=== PATIENT | female | born 1975 | race Two or more races ===

== ENCOUNTER 2024-10-17 00:45 | Inpatient (IN) | payer SELFPAY ==
[~2024-10-17] VITALS: Ht 162.6 cm; Wt 70.1 kg
[2024-10-17] VITALS (9 sets, daily range): BP systolic 136–157; BP diastolic 65–90; PULSE 69–87; RESP 15–19; TEMP 97.6–98.3; O2SAT 96–100
--- NOTE | 2024-10-17 01:02 | ED.PDOC ---
HPI (NEURO) HPI Comments 49-year-old female came to ER via EMS for seizures. Patient has no history of seizures. Patient was asleep when she had a witnessed seizure by her , described as tonic-clonic, lasting approximately 30 seconds. Noted oral trauma. Upon arrival paramedics patient is still postictal. Blood sugar on scene was 117. Chief Complaint: Seizure Time Seen by MD: 01:01 Reviewed Notes: Nurses Notes Information Source: Patient, Emergency Med Personnel Mode of Arrival: EMS Severity: Moderate Dizziness/Weakness Severity: Unable to do activities Headache Severity: Moderate Timing: Minutes Duration: Since onset Seizure Quality: Tonic-clonic Headache Quality: Throbbing, Aching Headache Location: Generalized Weakness Location: Generalized Numbness Location: Generalized Seizure Location: Generalized Onset: At rest Circumstances: Spontaneous Past Medical History PAST MEDICAL HISTORY: HTN Surgical History: Denies all surgeries PLATE MOLDER History: Denies all PLATE MOLDER Hx Family History Family History: Reviewed,noncontributory to illness Social History Smoker: Non-Smoker Alcohol: Denies ETOH Use Drugs: Denies Drug Use Lives In: Home Constitutional: denies: chills, diaphoresis, fatigue, fever, malaise, sweats, weakness, others EENTM: denies: blurred vision, double vision, ear bleeding, ear discharge, ear drainage, ear pain, ear ringing, eye pain, eye redness, hearing loss, mouth pain, mouth swelling, nasal discharge, nose bleeding, nose congestion, nose pain, photophobia, tearing, throat pain, throat swelling, voice changes, others Respiratory: denies: cough, hemoptysis, orthopnea, SOB at rest, shortness of breath, SOB with excertion, stridor, wheezing, others Cardiovascular: denies: chest pain, dizzy spells, diaphoresis, Dyspnea on exertion, edema, irregular heart beat, left arm pain, lightheadedness, palpitations, PND, syncope, others Gastrointestinal: denies: abdomen distended, abdominal pain, blood streaked bowels, constipated, diarrhea, dysphagia, difficulty swallowing, hematemesis, melena, nausea, poor appetite, poor fluid intake, rectal bleeding, rectal pain, vomiting, others Genitourinary: denies: abnormal vagina bleeding, burning, dyspareunia, dysuria, flank pain, frequency, hematuria, incontinence, pain, , vagina discharge, urgency, others Neurological: reports: headache, seizure, weakness; denies: dizziness, fainting, left sided numbness, left sided weakness, numbness, paresthesia, pre- existing deficit, right sided numbness, right sided weakness, speech problems, tingling, tremors, others Musculoskeletal: denies: back pain, gout, joint pain, joint swelling, muscle pain, muscle stiffness, neck pain, others Integumetry: denies: bruises, change in color, change in hair/nails, dryness, laceration, lesions, lumps, rash, wounds, others Allergic/Immunocompromised: denies: Difficulty Healing, Frequent Infections, Hives, Itching, others Hematologic/Lymphatic: denies: anemia, blood clots, easy bleeding, easy bruising, swollen glands, others Endocrine: denies: excessive hunger, excessive sweating, excessive thirst, excessive urination, flushing, intolerance to cold, intolerance to heat, unexplained weight gain, unexplained weight loss, others Psychiatric: denies: anxiety, bipolar disorder, depression, hopeless, panic disorder, schizophrenia, sleepless, suicidal, others Physical Exam General Appearance: No Apparent Distress, Normal HEENT: Normal ENT Inspection, Pharynx Normal, TMs Normal Neck: Full Range of Motion, Non-Tender, Normal, Normal Inspection Respiratory: Chest Non-Tender, Lungs Clear, No Accessory Muscle Use, No Respiratory Distress, Normal Breath Sounds Cardiovascular: No Edema, No JVD, No Murmur, No Gallop, Normal Peripheral Pulses, Regular Rate/Rhythm Breast Exam: Deferred Gastrointestinal: No Organomegaly, Non Tender, No Pulsatile Mass, Normal Bowel Sounds, Soft Genitalia: Deferred Pelvic: Deferred Rectal: Deferred Extremities: No calf tenderness, Normal capillary refill, Normal inspection, Normal range of motion, Non-tender, No pedal edema Musculoskeletal : Apperance: Normal Neurologic: Alert, microelectronics assembler II-XII nml as Tested, No Motor Deficits, Normal Affect, Normal Mood, No Sensory Deficits Cerebellar Function: Normal Reflexes: Normal Skin: Dry, Normal Color, Warm Lymphatic: No Adenopathy Was a procedure done? Was a procedure done?: No Differential Diagnosis (SZ) Seizure: Psychogenic Seizure, Hypoglycemia, Hypoxemia, Idiopathic, Syncope, Enc ephalopathy, Epilepsy-Break Through X-Ray, Labs, Meds, VS Vital Signs Date Time Temp Pulse Resp B/P (MAP) Pulse Ox O2 Delivery O2 Flow Rate FiO2 10/17/24 01:45 Room Air* 0 21 10/17/24 01:45 97.7 94 17 154/77 (102) 99 97.7 10/17/24 01:34 96 10/17/24 00:53 98.7 104 18 169/82 96 98.7 Lab Test 10/17/24 01:50 10/17/24 00:50 Range/Units Urine Color Colorless Yellow Urine Clarity Clear Clear Urine pH 8.0 5.0-9.0 Urine Specific [place] 1.011 1.001-1.035 Urine Protein Negative Negative Urine Ketones Negative Negative Urine Blood 3+ H Negative /uL Urine Nitrite Negative Negative Urine Bilirubin Negative Negative Urine Urobilinogen Normal Negative mg/dL Urine Leukocyte Esterase Negative Negative /uL Urine RBC <1 0 - 4 /hpf Urine Microscopic WBC Pending Urine Squamous Epithelial Cells Few <5 /hpf Urine Bacteria None seen None Seen /hpf Urine Glucose Normal Normal mg/dL Urine Opiates Screen Neg NEGATIVE Urine Fentanyl Screen Neg NEGATIVE Urine Barbiturates Screen Neg NEGATIVE Urine Phencyclidine Screen Neg NEGATIVE Urine Amphetamines Screen Neg NEGATIVE Urine Benzodiazepines Screen Neg NEGATIVE Urine Cocaine Screen Neg NEGATIVE Urine Cannabinoids Screen Neg NEGATIVE White Blood Count 12.4 H 4.4-10.8 10^3/uL Red Blood Count 2.29 L 4.0-5.20 10^6/uL Hemoglobin 6.2 *L 12.2-16.2 g/dL Hematocrit 18.7 L 36.0-46.0 % Mean Corpuscular Volume 81.7 80.0-100.0 fL Mean Corpuscular Hemoglobin 27.0 L 28.0-32.0 pg Mean Corpuscular Hemoglobin Concent 33.1 32.0-36.0 g/dL Red Cell Distribution Width 16.3 H 11.8-14.3 % Platelet Count 895 *H 140-450 10^3/uL Mean Platelet Volume 6.9 6.9-10.8 fL Neutrophils (%) (Auto) 65.6 37.0-80.0 % Lymphocytes (%) (Auto) 24.7 10.0-50.0 % Monocytes (%) (Auto) 7.6 0.0-12.0 % Eosinophils (%) (Auto) 1.5 0.0-7.0 % Basophils (%) (Auto) 0.6 0.0-2.0 % Neutrophils # (Auto) 8.1 1.6-8.6 10 ^3/uL Lymphocytes # (Auto) 3.1 0.4-5.4 10 ^3/uL Monocytes # (Auto) 0.9 0-1.3 10 ^3/uL Eosinophils # (Auto) 0.2 0-0.8 10 ^3/uL Basophils # (Auto) 0.1 0-0.2 10 ^3/uL Nucleated Red Blood Cells 0.1 % Prothrombin Time 9.8 9.3-11.8 sec Prothrombin Time INR 0.92 0.9-1.15 Activated Partial Thromboplast Time 20.6 L 24.5-34.5 SEC Sodium Level 141 136-145 mmol/L Potassium Level 3.2 L 3.5-5.1 mmol/L Chloride Level 105 98-107 mmol/L Carbon Dioxide Level 24 20-31 mmol/L Anion Gap 12 5-15 Blood Urea Nitrogen 8 L 9-23 mg/dL Creatinine 0.80 0.550-1.02 mg/dL Glomerular Filtration Rate Calc 89 >90 mL/min BUN/Creatinine Ratio 10.0 10.0-20.0 Serum Glucose 102 74-106 mg/dL Calcium Level 8.6 L 8.7-10.4 mg/dL Magnesium Level 1.9 1.6-2.6 mg/dL Iron Level 13 L 50-170 ug/dL Total Iron Binding Capacity 396 250-425 ug/dL Percent Iron Saturation 3.3 L 15-50 % Total Bilirubin < 0.2 L 0.2-1.0 mg/dL Aspartate Amino Transferase (AST) 14 13-40 U/L Alanine Aminotransferase (ALT) 11 7-40 U/L Alkaline Phosphatase 83 46-116 U/L Total Protein 7.0 5.7-8.2 g/dL Albumin 4.0 3.2-4.8 g/dL Plasma/Serum Blood Alcohol < 3.0 <10 mg/dL Current Medications Medications (Trade) Dose Ordered Sig/Inocencia Route Start Time Stop Time Status Last Admin Lorazepam (Ativan Inj) 1 mg ONCE ONCE IV 10/17/24 01:00 10/17/24 01:01 DC 10/17/24 02:03 Sodium Chloride 1,000 ml @ 500 mls/hr Q2H ONCE IVB 10/17/24 01:00 10/17/24 02:59 DC 10/17/24 02:03 Time of 1ST Reevaluation: 00:56 Reevaluation 1ST: Unchanged Patient Education/Counseling: Diagnosis, Treatment Family Education/Counseling: No Family Present Departure 1 Departure Time of Disposition: 05:02 Impression: Primary Impression: New onset seizure Additional Impression: Symptomatic anemia Disposition: ADMITTED INPATIENT Admit to: Med Surg Condition: Guarded Comments 49-year-old female with a history of hypertension now presents after having a seizure at home. She does have some small abrasions to the tongue and was briefly aggressive to events for about 15 minutes. The seizure was witnessed by her who witnessed the whole thing and states that she was in bed and did not have any significant trauma or fall. Head CT shows no acute pathology. Patient has severe anemia. I ordered a blood transfusion. Patient is complaining of feeling generalized weakness. Patient will need to be admitted for symptomatic anemia new onset seizure Critical Care Note Critical Care Time?: No Stability Stability form required: No Heart Score Heart Score: Heart Score Response (Comments) Value History N/A 0 EKG N/A 0 Age N/A 0 Risk Factors N/A 0 Troponin N/A 0 Total 0 I personally scribed for CYNTHIA BRAVO MD ([email or web address]) on 10/17/24 at 01:02. Electronically submitted by Siddharth Lewis ([facility]). CYNTHIA BRAVO MD Oct 17, 2024 01:02
[2024-10-17 01:09] LABS: Nucleated Red Blood Cells % 0.1 %
[2024-10-17 01:11] LABS: Hematocrit 18.7 % (36.0-46.0); Mean Corpuscular Hemoglobin 27.0 pg (28.0-32.0); Mean Corpuscular Volume 81.7 fL (80.0-100.0)
[2024-10-17 01:21] LABS: Hemoglobin 6.2 g/dL (12.2-16.2)
[2024-10-17 01:26] LABS: Alanine Aminotransferase 11 U/L (7-40); Albumin 4.0 g/dL (3.2-4.8); Alkaline Phosphatase 83 U/L (46-116); Anion Gap 12 (5-15); BUN/Creatinine Ratio 10.0 (10.0-20.0); Carbon Dioxide 24 mmol/L (20-31); Chloride 105 mmol/L (98-107); Glucose 102 mg/dL (74-106); Magnesium 1.9 mg/dL (1.6-2.6); Sodium 141 mmol/L (136-145); Total Protein 7.0 g/dL (5.7-8.2)
[2024-10-17 01:32] LABS: Bilirubin, Total < 0.2 mg/dL (0.2-1.0); Blood Urea Nitrogen 8 mg/dL (9-23); Calcium 8.6 mg/dL (8.7-10.4); Potassium 3.2 mmol/L (3.5-5.1)
[2024-10-17 02:00] LABS: Urine Protein, UAD Negative (Negative)
[2024-10-17] MEDS: LORazepam 2MG/ML-1ML VIAL IV ONE (02:03)
[2024-10-17] MEDS: SODIUM CHLORIDE 0.9% 1,000 ML IVB ONE (02:03)
[2024-10-17 02:05] LABS: Total Iron Binding Capacity 396.0 ug/dL (250-425)
[2024-10-17 02:07] LABS: Iron 13.0 ug/dL (50-170)
[2024-10-17 02:14] LABS: INR 0.92 (0.9-1.15); Partial Thromboplastin Time 20.6 SEC (24.5-34.5); Prothrombin Time 9.8 sec (9.3-11.8)
[2024-10-17 02:16] LABS: Phencyclidine Screen, Urine Neg (NEGATIVE)
[2024-10-17 02:20] LABS: Amphetamine Screen, Urine Neg (NEGATIVE); Barbiturate Scree,Urine Neg (NEGATIVE); Benzodiazephine Screen, Urine Neg (NEGATIVE); Cannabinoid Screen, Urine Neg (NEGATIVE); Cocaine Screen, Urine Neg (NEGATIVE); Opiate Scree,Urine Neg (NEGATIVE)
--- NOTE | 2024-10-17 04:21 | DVH ---
EXAM: CT HEAD WITHOUT CONTRAST INDICATION: new seizure TECHNIQUE: CT of the head without intravenous contrast. Radiation Dose : 1. Head: CT Dose: CTDI volume is 52.46 mGy. Dose-length product is 929.07 mGy*cm The dose indicators for CT are the volume Computed Tomography (CT) Dose Index (CTDIvol) and the Dose Length Product (DLP), and are measured in units of mGy and mGy-cm, respectively. These indicators are not patient dose, but values generated from the CT scanner acquisition factors. The report includes radiation exposure data for exposures received during this examination. COMPARISON: None FINDINGS: There is no evidence of acute intracranial hemorrhage, extra-axial collection, mass effect, midline s hift, herniation or hydrocephalus. The ventricles, sulci and cisterns are age appropriate. The beaulieu-white differentiation is intact. The visualized paranasal sinuses and mastoid air cells are clear. The surrounding soft tissues and osseous structures are unremarkable. IMPRESSION: 1. No acute intracranial abnormality. Radiation optimization: All CT scans at this facility use at least one of these dose optimization aissatou hniques: automated exposure control mA and/or kV adjustment per patient size (includes targeted exam s where dose is matched to clinical indication) or iterative reconstruction.
--- NOTE | 2024-10-17 05:16 | ECG ---
[facility] Test Date: 2024-10-17 Test Time: 01:34:08 Pat Name: HOSEA GALVEZ Department: Room: 0279T Gender: F Sheet Metal Journeyman: LUCIUS : 1975 Requested By: CYNTHIA BRAVO Order Number: [id number] Reading MD: Orlando Boswell Measurements Intervals [place] Rate: 96 P: 56 DC: 164 QRS: 44 QRSD: 102 T: 33 QT: 353 QTc: 447 Interpretive Statements Sinus rhythm Borderline T abnormalities, anterior leads Electronically Signed On 10-18-2024 22:58:33 PDT by Orlando Boswell Please click the below link to view image of tracing.
[2024-10-17] MEDS ORDERED: ONDANSETRON HCL 4 MG/2 ML VIAL IV PRN (12:45)
[2024-10-17] MEDS: MAGNESIUM SULFATE 1GM/100ML 100 ML IV ONE (13:17)
[2024-10-17] MEDS: SODIUM CHLORIDE 0.9% 1,000 ML IV ONE (13:17)
[2024-10-17] MEDS: HYDROcodone-ACET 7.5/325MG TAB PO ONE (13:18)
[2024-10-17] MEDS: POTASSIUM CHLORIDE 40 MEQ, LIDOCAINE 1% (LOCAL ANESTH.) 4 ML in SODIUM CHL 0.9% 250 ML IV ONE (15:58)
--- NOTE | 2024-10-17 18:10 | DVHHPRES ---
History of Present Illness Resident Creating Document: YAKOV BRUNSON RESDIENT History of Present Illness This is a 49-year-old female with past medical history of hypertension, gestational diabetes mellitus severe anemia (status post transfusion) came to the hospital due to seizure. Per patient's has been, last night at 11:00 p.m. while she wanted to sleep, she suddenly developed jerky movement of limbs, subsequently lost consciousness which last for few minutes. Upon waking up patient was confused for about 15-20 minutes. She also reports of tongue biting. But denies of urine/stool incontinence. One month back, the patient was admitted at [facility] due to severe anemia and abdominal pain, underwent EGD which was found a mass in stomach. She also reports of recently decreased appetite and significant weight loss. She denies fever, cough, chest pain, shortness of breaths or any recent sick contact. Patient does not have any previous history of seizure. PMHx: hypertension, gestational diabetes mellitus severe anemia (status post transfusion) PSHx: Status post EGD 1 month back Family history: No cigarette Social history: Current smoker with 10 pack year history Home medication: Carafate and tramadol for pain Allergic history: No known allergy Patient seen and examined at bedside. Patient is lethargic and complained of generalized weakness. Review of Systems Allergies: Coded Allergies: NO KNOWN ALLERGIES (Unverified , 10/17/24) Medications Current Medications Medications Dose Ordered Sig/Inocencia Route Start Time Stop Time Status Last Admin Dose Admin Acetaminophen 650 mg Q6HR PO 10/17/24 18:00 Ondansetron HCl 4 mg Q4HP PRN IV 10/17/24 12:45 Acetaminophen/ Hydrocodone Bitart 1 tab Q6HP PRN PO 10/17/24 12:45 Exam Vital Signs Vital Signs Date Time Temp Pulse Resp B/P (MAP) Pulse Ox O2 Delivery O2 Flow Rate FiO2 10/17/24 16:50 98.5 98.5 10/17/24 16:00 69 10/17/24 16:00 17 132/52 (78) 98 10/17/24 07:55 Room Air* 0 21 Exam General Appearance: Alert, Oriented X3, Cooperative, No acute distress HEENT: Pale mucosa Respiratory: Clear to auscultation, Normal air movement Cardiovascular: Regular rate, Normal S1, Normal S2, No murmurs, no chest wall tenderness Abdominal: Normal bowel sounds, Soft, No tenderness, No hepatospenomegaly, No masses Extremities: No clubbing, No cyanosis, No edema, Normal pulses, No tenderness/swelling Skin: No rashes, No breakdown, No significant lesion Neuro: Normal gait, Normal speech, Strength at 5/5 X4 ext, Normal tone, Sensation intact, Cranial nerves 3-12 NL, Reflexes 2+ Psych/Mental Status: Mental status NL, Mood NL Labs/Xrays Labs Test 10/17/24 01:50 10/17/24 00:50 Range/Units Urine Color Colorless Yellow Urine Clarity Clear Clear Urine pH 8.0 5.0-9.0 Urine Specific [place] 1.011 1.001-1.035 Urine Protein Negative Negative Urine Ketones Negative Negative Urine Blood 3+ H Negative /uL Urine Nitrite Negative Negative Urine Bilirubin Negative Negative Urine Urobilinogen Normal Negative mg/dL Urine Leukocyte Esterase Negative Negative /uL Urine RBC <1 0 - 4 /hpf Urine Microscopic WBC < 2 0-5 /HPF Urine Squamous Epithelial Cells Few <5 /hpf Urine Bacteria None seen None Seen /hpf Urine Glucose Normal Normal mg/dL Urine Opiates Screen Neg NEGATIVE Urine Fentanyl Screen Neg NEGATIVE Urine Barbiturates Screen Neg NEGATIVE Urine Phencyclidine Screen Neg NEGATIVE Urine Amphetamines Screen Neg NEGATIVE Urine Benzodiazepines Screen Neg NEGATIVE Urine Cocaine Screen Neg NEGATIVE Urine Cannabinoids Screen Neg NEGATIVE White Blood Count 12.4 H 4.4-10.8 10^3/uL Red Blood Count 2.29 L 4.0-5.20 10^6/uL Hemoglobin 6.2 *L 12.2-16.2 g/dL Hematocrit 18.7 L 36.0-46.0 % Mean Corpuscular Volume 81.7 80.0-100.0 fL Mean Corpuscular Hemoglobin 27.0 L 28.0-32.0 pg Mean Corpuscular Hemoglobin Concent 33.1 32.0-36.0 g/dL Red Cell Distribution Width 16.3 H 11.8-14.3 % Platelet Count 895 *H 140-450 10^3/uL Mean Platelet Volume 6.9 6.9-10.8 fL Neutrophils (%) (Auto) 65.6 37.0-80.0 % Lymphocytes (%) (Auto) 24.7 10.0-50.0 % Monocytes (%) (Auto) 7.6 0.0-12.0 % Eosinophils (%) (Auto) 1.5 0.0-7.0 % Basophils (%) (Auto) 0.6 0.0-2.0 % Neutrophils # (Auto) 8.1 1.6-8.6 10 ^3/uL Lymphocytes # (Auto) 3.1 0.4-5.4 10 ^3/uL Monocytes # (Auto) 0.9 0-1.3 10 ^3/uL Eosinophils # (Auto) 0.2 0-0.8 10 ^3/uL Basophils # (Auto) 0.1 0-0.2 10 ^3/uL Nucleated Red Blood Cells 0.1 % Prothrombin Time 9.8 9.3-11.8 sec Prothrombin Time INR 0.92 0.9-1.15 Activated Partial Thromboplast Time 20.6 L 24.5-34.5 SEC Sodium Level 141 136-145 mmol/L Potassium Level 3.2 L 3.5-5.1 mmol/L Chloride Level 105 98-107 mmol/L Carbon Dioxide Level 24 20-31 mmol/L Anion Gap 12 5-15 Blood Urea Nitrogen 8 L 9-23 mg/dL Creatinine 0.80 0.550-1.02 mg/dL Glomerular Filtration Rate Calc 89 >90 mL/min BUN/Creatinine Ratio 10.0 10.0-20.0 Serum Glucose 102 74-106 mg/dL Calcium Level 8.6 L 8.7-10.4 mg/dL Phosphorus Level 2.6 2.4-5.1 mg/dL Magnesium Level 1.9 1.6-2.6 mg/dL Iron Level 13 L 50-170 ug/dL Total Iron Binding Capacity 396 250-425 ug/dL Percent Iron Saturation 3.3 L 15-50 % Total Bilirubin < 0.2 L 0.2-1.0 mg/dL Aspartate Amino Transferase (AST) 14 13-40 U/L Alanine Aminotransferase (ALT) 11 7-40 U/L Alkaline Phosphatase 83 46-116 U/L Creatine Kinase 27 L 34-145 U/L Total Protein 7.0 5.7-8.2 g/dL Albumin 4.0 3.2-4.8 g/dL Thyroid Stimulating Hormone (TSH) 3.02 0.55-4.78 uIU/mL Plasma/Serum Blood Alcohol < 3.0 <10 mg/dL SEPSIS Sepsis Screen Date sepsis recognized/suspect: Oct 17, 2024 Time Sepsis recognized/suspect: 144 Recent Procedure: No On Antibiotic Therapy: No Respiratory Rate >20: No Heart Rate >90: Yes Temp<36 C (96.8 F) or >38.3 C: No SBP <90 or MAP <65 mmHG: No New Acute Mental Status Change: No Is the patient on CPAP, BIPAP,: No Physician Orders Admit (10/17/24 12:43) Code Status (10/17/24 12:43) Vital Signs .PER UNIT PROTOCOL (10/17/24 12:43) Review Orders With Adm.Md (10/17/24 12:43) Acetaminophen Tablet (Tylenol Tablet) (10/17/24 18:00) Notify Md Of Changes From Base (10/17/24 12:43) Advance Directive (10/17/24 12:43) Patient Condition (10/17/24 12:43) Allergies (10/17/24 12:43) Ondansetron Hcl (Zofran) (10/17/24 12:45) Drug Screen (10/17/24 12:43) Stat Ekg For Chest Pain (10/17/24 12:43) Notify Md Of Changes From Base (10/17/24 12:43) Duplicating Machine Mechanic For 24 Hours (10/17/24 12:43) Complete Blood Count (10/18/24 04:00) Comprehensive Metabolic Panel (10/18/24 04:00) Hydrocodone-Acet 7.5/325mg Tab ([place] 7. (10/17/24 12:45) Stool Occult Blood (10/17/24 12:43) Communication Order (10/17/24 12:43) * Neurology Consult (10/17/24 12:43) Electrocardigram (10/17/24 12:43) Vitamin B12 (10/17/24 12:43) Ferritin (10/17/24 12:43) Vital Signs Date Time Temp Pulse Resp B/P (MAP) Pulse Ox O2 Delivery O2 Flow Rate FiO2 10/17/24 16:50 98.5 98.5 10/17/24 16:00 69 10/17/24 16:00 68 17 132/52 (78) 98 10/17/24 14:00 66 17 130/40 (70) 98 10/17/24 12:00 90 10/17/24 12:00 66 17 130/40 (70) 98 Medications Medications Dose Ordered Sig/Inocencia Route Start Time Stop Time Status Last Admin Dose Admin Acetaminophen/ Hydrocodone Bitart 1 tab ONCE ONCE PO 10/17/24 12:45 10/17/24 13:12 DC 10/17/24 13:18 1 TAB Magnesium Sulfate/ Dextrose 100 ml @ 100 mls/hr ONCE ONCE IV 10/17/24 12:45 10/17/24 13:44 DC 10/17/24 13:17 100 MLS/HR Potassium Chloride 40 meq/ Potassium Chloride 4 ml/ Sodium Chloride 274 ml @ 68.5 mls/hr ONCE ONCE IV 10/17/24 12:45 10/17/24 16:44 DC 10/17/24 15:58 68.5 MLS/HR Sodium Chloride 1,000 ml @ 200 mls/hr Q5H ONCE IV 10/17/24 12:45 10/17/24 17:44 DC 10/17/24 13:17 200 MLS/HR Assessment/Plan Assessment/Plan Acute metabolic encephalopathy, likely due to seizure Status post seizure Severe anemia, likely due to GI cancer Possible stomach cancer Hypotension History of gestational diabetes mellitus Hypokalemia * EKGs shows sinus rhythm with no significant ST or T-wave changes * Iron studies shows iron-deficiency anemia * Head CT scan shows no significant intracranial abnormalities Plan/recommendation * Ativan p.r.n. and IV fluid, blood transfusion * Protonix, and pain killer * Consulted neurology * Requested medical records from [facility] * Consulted GI DIET: Regular diet DVT PROPHYLAXIS: SCDs GI PROPHYLAXIS:: Protonix CODE STATUS: Goal of care discussed for more than 18 minutes, full code DISPOSITION: Med/surge Patient's status and plan discussed with the patient. Case discussed with Dr. Salvador. Plan discussed with: Patient, Other (RN) My Orders Orders - YAKOV BRUNSON RESBULL Procedure Category Date Status Time Admit ADMIT 10/17/24 Transmitted 12:43 Code Status CODE 10/17/24 Transmitted 12:43 Vital Signs ERNESTO 10/17/24 In Process 12:43 Review Orders With ERNESTO 10/17/24 In Process Adm. 12:43 Acetaminophen Tablet PHA 10/17/24 In Process (Tylenol Tablet) 18:00 Notify Md Of Changes ERNESTO 10/17/24 In Process From Base 12:43 Advance Directive ERNESTO 10/17/24 In Process 12:43 Patient Condition ORDERS 10/17/24 Transmitted 12:43 Allergies ERNESTO 10/17/24 In Process 12:43 Ondansetron Hcl PHA 10/17/24 In Process (Zofran) 12:45 Drug Screen LAB 10/17/24 Logged 12:43 Stat Ekg For Chest ERNESTO 10/17/24 In Process Pain 12:43 Notify Md Of Changes ERNESTO 10/17/24 In Process From Base 12:43 Duplicating Machine Mechanic For ERNESTO 10/17/24 In Process 24 Hours 12:43 Complete Blood Count LAB 10/18/24 Verified 04:00 Comprehensive LAB 10/18/24 Verified Metabolic Panel 04:00 Hydrocodone-Acet PHA 10/17/24 In Process 7.5/325mg Tab ([place] 12:45 Stool Occult Blood LAB 10/17/24 Logged 12:43 Communication Order ORDERS 10/17/24 Transmitted 12:43 * Neurology Consult CONS 10/17/24 Transmitted 12:43 Electrocardigram EKG 10/17/24 Logged 12:43 Vitamin B12 LAB 10/17/24 In Process 12:43 Ferritin LAB 10/17/24 In Process 12:43 Date of Service: Oct 17, 2024 Billing Provider: BERNADINE TERAN MD Common Visit Codes: 05939-[id number] INP/OBS CARE (HIGH) Secondary Visit Codes: 55842-KTRQVMLP CARE PLAN 30 MINUTES YAKOV BRUNSON RESDIENT Oct 17, 2024 18:10 BERNADINE TERAN MD Oct 18, 2024 00:55
[2024-10-17] MEDS ORDERED: LORazepam 2MG/ML-1ML VIAL IV PRN ×3 (18:15→23:15)
[2024-10-17] MEDS: ACETAMINOPHEN 325 MG TAB PO SCH (19:34)
[2024-10-17] MEDS: HYDROcodone-ACET 7.5/325MG TAB PO PRN (19:51)
--- NOTE | 2024-10-17 22:44 | DVHINCON2 ---
Date of service: Oct 17, [address] Theodore Reason for Consultation Seizure History of Present Illness Ms. Shirley Orellana is a 49 years old right-handed female with a history of hypertension, she was brought to the [facility] on 10/17/2024 with a chief company of seizure activity. At that time, she is alert, oriented x4, but he is a poor historian, she claims she has no recollection about convulsion. According to her , when she was sleep, he witnessed the event on her where she was shaking all over body for about 30 seconds, meanwhile her eyes were looking straight, completely nonresponsive to her surroundings, there was no oral trauma or incontinence. The patient was still postictal when the EMS arrived her home She has no history of traumatic brain injury, intracranial infection or family history of seizure disorder In the hospital, the patient was found to have severe anemia [phone], no answer Reyna UDS, 10/17/2024: Negative Plasma alcohol, 10/17/2024: <3 Urinalysis, 10/17/2024: WBC: 2, urine leukocyte esterase: Negative, blood: 3+ WBC/HB/PLT/MCV, 10/17/2024: 12.4/6.2/895/81.7 PTT/INR/ABG, 10/17/2024: 9.8/0.92/20.6 CMP, 10/17/2024: Unremarkable Iron/TIBC/Sat, 10/18/2019 5:13 a.m./396/3.3 Ferritin, 10/17/24: Vitamin B12, 10/17/2024: TSH, 10/17/2024: 3.02 CT head, 10/17/2024: No acute intracranial abnormality Past Medical History Hypertension. No GI bleeding previously Past Surgical History No surgeries Family History: Patient reports no known family medical history. Family History Mother had hypertension, father had diffuse body pain Social History She smokes tobacco, but denies a history of drug, alcohol abuse, he is not licensed to drive Allergies: Coded Allergies: NO KNOWN ALLERGIES (Unverified , 10/17/24) Current Medications Current Medications Medications (Trade) Dose Ordered Sig/Inocencia Route PRN Reason Start Time Stop Time Status Last Admin Acetaminophen (Tylenol Tablet) 650 mg Q6HR PO 10/17/24 18:00 10/17/24 19:34 Ondansetron HCl (Zofran) 4 mg Q4HP PRN IV NAUSEA / VOMITING 10/17/24 12:45 Acetaminophen/ Hydrocodone Bitart ([place] 7.5/325MG Tab) 1 tab Q6HP PRN PO MODERATE PAIN (4-6 PAIN SCALE) 10/17/24 12:45 10/17/24 19:51 Lorazepam (Ativan Inj) 1 mg Q5MINP PRN IV SEIZURES 10/17/24 18:15 Iron Sucrose 110 ml @ 110 mls/hr DAILY@1200 IV 10/18/24 12:00 10/18/24 12:59 Review of Systems As above, the other systems are negative Vital Signs Vital Signs Date Time Temp Pulse Resp B/P (MAP) Pulse Ox O2 Delivery O2 Flow Rate FiO2 10/17/24 20:00 70 17 100 Room Air* 0 21 10/17/24 18:50 97.6 151/65 (93) 97.6 Physical Exam GENERAL EXAM: General: the patient is well developed and nourished. No acute distress. HEENT: Normocephalic, neck is supple, no carotid bruits. No mass. RESPIRATORY: Normal respiratory effort with symmetrical lung expansion. Lungs clear to auscultation. CARDIOVASCULAR: Regular rate and rhythm with no murmurs. S1, S2. ABDOMEN: Soft, nontender, normal bowel sound NEUROLOGICAL: MENTAL STATUS: Awake and alert. Oriented to person, place, time and general circumstances. Poor historian SPEECH, LANGUAGE, HIGHER CORTICAL FUNCTION: no aphasia or dysathria. CRANIAL NERVES: #2: Intact visual britton to confrontation. The optic discs were sharp. #3,4,6: Pupils are equal, round and reactive. EOMs full and conjugate. #5: Facial sensation intact in all three divisions bilaterally. Mandibular strength intact. #7: Facial muscles symmetrical and strength intact. #8: Hearing grossly normal to voice. #9,10: Uvula and soft palate rise in the midline. Swallow and voice are normal. #11: Trapezius and sternomastoid strength intact bilaterally. #12: Tongue midline. No fasciculations or atrophy. SENSATION: Sensation to touch and pinprick is normal. MOTOR: Normal tone in the upper and lower extremity. Normal muscle bulk. No fasciculations. No abnormal movements or posturing. Muscle strength of the major groups in the extremities is 5/5. REFLEXES: Deep tendon reflexes are symmetrical. No pathological reflexes. CEREBELLAR/COORDINATION: Finger to nose and heel to barron are normal bilaterally. GAIT/STATION: deferred. Labs/Diagnostic Data Labs Test 10/17/24 01:50 10/17/24 00:50 Range/Units Urine Color Colorless Yellow Urine Clarity Clear Clear Urine pH 8.0 5.0-9.0 Urine Specific [place] 1.011 1.001-1.035 Urine Protein Negative Negative Urine Ketones Negative Negative Urine Blood 3+ H Negative /uL Urine Nitrite Negative Negative Urine Bilirubin Negative Negative Urine Urobilinogen Normal Negative mg/dL Urine Leukocyte Esterase Negative Negative /uL Urine RBC <1 0 - 4 /hpf Urine Microscopic WBC < 2 0-5 /HPF Urine Squamous Epithelial Cells Few <5 /hpf Urine Bacteria None seen None Seen /hpf Urine Glucose Normal Normal mg/dL Urine Opiates Screen Neg NEGATIVE Urine Fentanyl Screen Neg NEGATIVE Urine Barbiturates Screen Neg NEGATIVE Urine Phencyclidine Screen Neg NEGATIVE Urine Amphetamines Screen Neg NEGATIVE Urine Benzodiazepines Screen Neg NEGATIVE Urine Cocaine Screen Neg NEGATIVE Urine Cannabinoids Screen Neg NEGATIVE White Blood Count 12.4 H 4.4-10.8 10^3/uL Red Blood Count 2.29 L 4.0-5.20 10^6/uL Hemoglobin 6.2 *L 12.2-16.2 g/dL Hematocrit 18.7 L 36.0-46.0 % Mean Corpuscular Volume 81.7 80.0-100.0 fL Mean Corpuscular Hemoglobin 27.0 L 28.0-32.0 pg Mean Corpuscular Hemoglobin Concent 33.1 32.0-36.0 g/dL Red Cell Distribution Width 16.3 H 11.8-14.3 % Platelet Count 895 *H 140-450 10^3/uL Mean Platelet Volume 6.9 6.9-10.8 fL Neutrophils (%) (Auto) 65.6 37.0-80.0 % Lymphocytes (%) (Auto) 24.7 10.0-50.0 % Monocytes (%) (Auto) 7.6 0.0-12.0 % Eosinophils (%) (Auto) 1.5 0.0-7.0 % Basophils (%) (Auto) 0.6 0.0-2.0 % Neutrophils # (Auto) 8.1 1.6-8.6 10 ^3/uL Lymphocytes # (Auto) 3.1 0.4-5.4 10 ^3/uL Monocytes # (Auto) 0.9 0-1.3 10 ^3/uL Eosinophils # (Auto) 0.2 0-0.8 10 ^3/uL Basophils # (Auto) 0.1 0-0.2 10 ^3/uL Nucleated Red Blood Cells 0.1 % Prothrombin Time 9.8 9.3-11.8 sec Prothrombin Time INR 0.92 0.9-1.15 Activated Partial Thromboplast Time 20.6 L 24.5-34.5 SEC Sodium Level 141 136-145 mmol/L Potassium Level 3.2 L 3.5-5.1 mmol/L Chloride Level 105 98-107 mmol/L Carbon Dioxide Level 24 20-31 mmol/L Anion Gap 12 5-15 Blood Urea Nitrogen 8 L 9-23 mg/dL Creatinine 0.80 0.550-1.02 mg/dL Glomerular Filtration Rate Calc 89 >90 mL/min BUN/Creatinine Ratio 10.0 10.0-20.0 Serum Glucose 102 74-106 mg/dL Calcium Level 8.6 L 8.7-10.4 mg/dL Phosphorus Level 2.6 2.4-5.1 mg/dL Magnesium Level 1.9 1.6-2.6 mg/dL Iron Level 13 L 50-170 ug/dL Total Iron Binding Capacity 396 250-425 ug/dL Percent Iron Saturation 3.3 L 15-50 % Total Bilirubin < 0.2 L 0.2-1.0 mg/dL Aspartate Amino Transferase (AST) 14 13-40 U/L Alanine Aminotransferase (ALT) 11 7-40 U/L Alkaline Phosphatase 83 46-116 U/L Creatine Kinase 27 L 34-145 U/L Total Protein 7.0 5.7-8.2 g/dL Albumin 4.0 3.2-4.8 g/dL Thyroid Stimulating Hormone (TSH) 3.02 0.55-4.78 uIU/mL Plasma/Serum Blood Alcohol < 3.0 <10 mg/dL Assessment Witnessed generalized convulsion New onset generalized tonic-clonic seizure ? Convulsive syncope, less likely GI bleeding Severe anemia Plan/Recommendation Monitoring Supportive treatment Telemetry EEG MRI brain scan Ativan for seizure breakthrough Preventive seizure treatment is not indicated at this moment GI specialist on case More recommendation per clinical course Prognosis: Poor This medical document was created using an electronic medical record system with [employer] dictation system. Although this document has been carefully reviewed, there may still be some phonetic and typographical errors. These areas are purely typographical due to imperfections of the software programs, and do not reflect any compromise in the patient's medical care. Plan discussed with: Patient, Spouse, Other KO SUGGS MD Oct 17, 2024 22:44
[2024-10-18] VITALS (7 sets, daily range): BP systolic 136–164; BP diastolic 56–84; PULSE 56–80; RESP 14–20; TEMP 97–98.4; O2SAT 97–100
[2024-10-18 07:24] LABS: Mean Corpuscular Hemoglobin 26.5 pg (28.0-32.0)
[2024-10-18 07:26] LABS: Hematocrit 22.2 % (36.0-46.0); Hemoglobin 7.3 g/dL (12.2-16.2); Mean Corpuscular Volume 80.0 fL (80.0-100.0); Nucleated Red Blood Cells % 0.2 %
[2024-10-18 07:36] LABS: Alanine Aminotransferase 10 U/L (7-40); Albumin 3.9 g/dL (3.2-4.8); Alkaline Phosphatase 80 U/L (46-116); Anion Gap 9 (5-15); BUN/Creatinine Ratio 10.1 (10.0-20.0); Calcium 8.8 mg/dL (8.7-10.4); Carbon Dioxide 24 mmol/L (20-31); Glucose 80 mg/dL (74-106); Potassium 3.7 mmol/L (3.5-5.1); Sodium 141 mmol/L (136-145); Total Protein 6.8 g/dL (5.7-8.2)
[2024-10-18 07:39] LABS: Bilirubin, Total 0.2 mg/dL (0.2-1.0); Blood Urea Nitrogen 7 mg/dL (9-23); Chloride 108 mmol/L (98-107)
--- NOTE | 2024-10-18 09:00 | DVH ---
MRI BRAIN HEAD WO CONTRAST INDICATION: Sz EXAM DATE: 10/18/2024 08:12 AM COMPARISON: CT HEAD WITHOUT CONTRAST on DOS: 10/17/24 PROCEDURE: Using a 1.5 Lenore scanner, multisequence multiplanar imaging of the brain was obtained. FINDINGS: The brainshows normal morphology and signal characteristics. No abnormal T2 hyperintensity, diffusion restriction, or susceptibility hypointensity is present. The ventricles are normal in size . The midline structures are intact. The major intracranial flow voids are present. The aerated space s are normal. The orbital contents and extracranial soft tissues appear normal. IMPRESSION: Unremarkable MRI findings of the brain.
[2024-10-18 10:27] LABS: Ferritin 1.8 ng/mL (10-291)
[2024-10-18] MEDS: ALPRAZolam 0.25 MG TAB PO ONE (12:42)
[2024-10-18] MEDS: IRON SUCROSE COMPLEX 110 ML IV SCH (12:42)
--- NOTE | 2024-10-18 12:51 | DVHINCON2 ---
GI Consult Consult Note GI consult note Date of Consultation: 10/18/2024 Chief Complaint: Stomach cancer? Referring Physician: Dr Theodore H&P: 49-year-old Zambian-speaking patient with past medical history of hypertension and anemia admitted with seizure. RN translating. Patient is being seen by Dr. Valencia. Patient complains of left upper quadrant pain for the past one month, with nausea denies vomiting. Patient has decreased appetite and possible weight loss but unsure how much. Last bowel movement today with dark tarry stools, denies red blood in stool. Status post EGD at [facility] with possible ulcers per patient no records in chart yet from [facility]. Patient also complains of noticing blood in her urine. Patient has been having heavy menstrual cycle with blood clots for the past one year no professor of engineering follow-up or pelvic ultrasound per patient. No colonoscopy in past Past Medical History: Hypertension, gestational diabetes, severe anemia status post transfusion Past Surgical History: EGD one month ago Social History: + smoking, no drinking ETOH and use of illegal drugs. Family History: Noncontributory Review of Systems: Constitutional: no fever, chill, weight loss HEENT: no eye pain, no hearing loss, no oral lesion, no scleral icterus Heart: no chest pain, no chest pressure Lung: no cough, no dyspnea with exertion Abdomen: see HPI Physical exam: General: NAD, AAOX3 Chest: lung britton clear to auscultation Heart: RRR, no murmur Abdomen: Mild left upper quadrant tenderness to palpation, +BS Labs: Labs Test 10/17/24 01:50 10/17/24 00:50 Range/Units Urine Color Colorless Yellow Urine Clarity Clear Clear Urine pH 8.0 5.0-9.0 Urine Specific [place] 1.011 1.001-1.035 Urine Protein Negative Negative Urine Ketones Negative Negative Urine Blood 3+ H Negative /uL Urine Nitrite Negative Negative Urine Bilirubin Negative Negative Urine Urobilinogen Normal Negative mg/dL Urine Leukocyte Esterase Negative Negative /uL Urine RBC <1 0 - 4 /hpf Urine Microscopic WBC < 2 0-5 /HPF Urine Squamous Epithelial Cells Few <5 /hpf Urine Bacteria None seen None Seen /hpf Urine Glucose Normal Normal mg/dL Urine Opiates Screen Neg NEGATIVE Urine Fentanyl Screen Neg NEGATIVE Urine Barbiturates Screen Neg NEGATIVE Urine Phencyclidine Screen Neg NEGATIVE Urine Amphetamines Screen Neg NEGATIVE Urine Benzodiazepines Screen Neg NEGATIVE Urine Cocaine Screen Neg NEGATIVE Urine Cannabinoids Screen Neg NEGATIVE White Blood Count 12.4 H 4.4-10.8 10^3/uL Red Blood Count 2.29 L 4.0-5.20 10^6/uL Hemoglobin 6.2 *L 12.2-16.2 g/dL Hematocrit 18.7 L 36.0-46.0 % Mean Corpuscular Volume 81.7 80.0-100.0 fL Mean Corpuscular Hemoglobin 27.0 L 28.0-32.0 pg Mean Corpuscular Hemoglobin Concent 33.1 32.0-36.0 g/dL Red Cell Distribution Width 16.3 H 11.8-14.3 % Platelet Count 895 *H 140-450 10^3/uL Mean Platelet Volume 6.9 6.9-10.8 fL Neutrophils (%) (Auto) 65.6 37.0-80.0 % Lymphocytes (%) (Auto) 24.7 10.0-50.0 % Monocytes (%) (Auto) 7.6 0.0-12.0 % Eosinophils (%) (Auto) 1.5 0.0-7.0 % Basophils (%) (Auto) 0.6 0.0-2.0 % Neutrophils # (Auto) 8.1 1.6-8.6 10 ^3/uL Lymphocytes # (Auto) 3.1 0.4-5.4 10 ^3/uL Monocytes # (Auto) 0.9 0-1.3 10 ^3/uL Eosinophils # (Auto) 0.2 0-0.8 10 ^3/uL Basophils # (Auto) 0.1 0-0.2 10 ^3/uL Nucleated Red Blood Cells 0.1 % Prothrombin Time 9.8 9.3-11.8 sec Prothrombin Time INR 0.92 0.9-1.15 Activated Partial Thromboplast Time 20.6 L 24.5-34.5 SEC Sodium Level 141 136-145 mmol/L Potassium Level 3.2 L 3.5-5.1 mmol/L Chloride Level 105 98-107 mmol/L Carbon Dioxide Level 24 20-31 mmol/L Anion Gap 12 5-15 Blood Urea Nitrogen 8 L 9-23 mg/dL Creatinine 0.80 0.550-1.02 mg/dL Glomerular Filtration Rate Calc 89 >90 mL/min BUN/Creatinine Ratio 10.0 10.0-20.0 Serum Glucose 102 74-106 mg/dL Calcium Level 8.6 L 8.7-10.4 mg/dL Phosphorus Level 2.6 2.4-5.1 mg/dL Magnesium Level 1.9 1.6-2.6 mg/dL Iron Level 13 L 50-170 ug/dL Total Iron Binding Capacity 396 250-425 ug/dL Percent Iron Saturation 3.3 L 15-50 % Total Bilirubin < 0.2 L 0.2-1.0 mg/dL Aspartate Amino Transferase (AST) 14 13-40 U/L Alanine Aminotransferase (ALT) 11 7-40 U/L Alkaline Phosphatase 83 46-116 U/L Creatine Kinase 27 L 34-145 U/L Total Protein 7.0 5.7-8.2 g/dL Albumin 4.0 3.2-4.8 g/dL Thyroid Stimulating Hormone (TSH) 3.02 0.55-4.78 uIU/mL Plasma/Serum Blood Alcohol < 3.0 <10 mg/dL Imaging: Assessment: Seizure Severe anemia Plan: Discussed with Dr. Acosta Obtain records and pathology and CT scans from [facility] Monitor labs transfuse if hemoglobin less than seven Zofran and Protonix Recommend pelvic ultrasound and possible professor of engineering consult We will continue to monitor patient Plan discussed with patient and RN Thank you for this consult Date of Service: Oct 18, 2024 Billing Provider: BIBI ELIZALDE Common Visit Codes: CONSULT ONLY Consultation Codes: [id number] CONSULT <60MIN BIBI ELIZALDE Oct 18, 2024 12:51
--- NOTE | 2024-10-18 14:59 | DVH ---
INDICATION: anemia, history of vaginal bleeding TECHNIQUE: Multiple real-time grayscale transabdominal sonographic images along with color and duplex Doppler of the uterus and ovaries were obtained. COMPARISON: None FINDINGS: The uterus measures 9 x 6 x 6 cm. The endometrial stripe measures 1 cm. The right ovary measures 6 x 5 x 5 cm. 3 right ovarian cyst. The left ovary measures 3 x 3 x 3 cm. Subsequent color and duplex Doppler interrogation of the ovaries demonstrated symmetric vascular flow to both ovaries, though this does not exclude the possibility of torsion due to the dual blood suppl y. IMPRESSION: 1. Grossly unremarkable pelvic ultrasound.
--- NOTE | 2024-10-18 16:19 | DVHPNRES ---
Progress Note Date Seen: Oct 18, 2024 Resident Creating Document: YAKOV BRUNSON RESDIENT Medical Necessity Reason Pt with a Central, PICC or Fol: No Subjective Review of Systems Patient seen and examined at the bedside. Patient is feeling better since admission but still complaining of headache. Objective vital signs Vital Sign Date Time Temp Pulse Resp B/P (MAP) Pulse Ox O2 Delivery O2 Flow Rate FiO2 10/18/24 12:26 97.5 70 18 145/72 (96) 99 97.5 10/18/24 08:00 Room Air* 0 21 Total Intake and Output 10/17/24 10/17/24 10/18/24 15:00 23:00 07:00 Intake Total 1100 ml 1268.5 ml 400 ml Output Total 0 ml Balance 1100 ml 1268.5 ml 400 ml medications Current Medications Medications Dose Ordered Sig/Inocencia Route Start Time Stop Time Status Last Admin Dose Admin Acetaminophen 650 mg Q6HR PO 10/17/24 18:00 10/18/24 12:42 650 MG Ondansetron HCl 4 mg Q4HP PRN IV 10/17/24 12:45 Acetaminophen/ Hydrocodone Bitart 1 tab Q6HP PRN PO 10/17/24 12:45 10/18/24 09:53 1 TAB Lorazepam 1 mg Q5MINP PRN IV 10/17/24 18:15 Lorazepam 1 mg ONCE PRN IV 10/17/24 23:15 Examination General Appearance: Alert, Oriented X3, Cooperative, No acute distress HEENT: Pale mucosa Respiratory: Clear to auscultation, Normal air movement Cardiovascular: Regular rate, Normal S1, Normal S2, No murmurs, no chest wall tenderness Abdominal: Normal bowel sounds, Soft, No tenderness, No hepatospenomegaly, No masses Extremities: No clubbing, No cyanosis, No edema, Normal pulses, No tenderness/swelling Skin: No rashes, No breakdown, No significant lesion Neuro: Normal gait, Normal speech, Strength at 5/5 X4 ext, Normal tone, Sensation intact, Cranial nerves 3-12 NL, Reflexes 2+ Psych/Mental Status: Mental status NL, Mood NL laboratory and microbiology Laboratory Tests 10/18/24 06:00 Test 10/18/24 06:00 Range/Units Serum Glucose 80 74-106 mg/dL Microbiology Date/Time Source Procedure Growth Status 10/17/24 19:45 Nose MRSA Screen - Final Complete Labs and/or images reviewed: Labs reviewed by me, Image(s) reviewed by me Problem List/Assessment/Plan Problem List/Assessment/Plan Acute metabolic encephalopathy, likely due to seizure Status post seizure Severe anemia, likely due to GI cancer Possible stomach cancer Hypotension History of gestational diabetes mellitus Hypokalemia * EKGs shows sinus rhythm with no significant ST or T-wave changes * Iron studies shows iron-deficiency anemia * Head CT scan shows no significant intracranial abnormalities Plan/recommendation * Ativan p.r.n. and IV fluid, blood transfusion * Protonix, and pain killer * Consulted neurology, recommended EEG, and performed MRI showed no significant intracranial abnormalities, * Requested medical records from [facility] * Consulted GI, recommended medical management DIET: Regular diet DVT PROPHYLAXIS: SCDs GI PROPHYLAXIS:: Protonix CODE STATUS: Goal of care discussed for more than 18 minutes, full code DISPOSITION: Med/surge Patient's status and plan discussed with the patient. Case discussed with Dr. Vallecillo. Plan discussed with: Patient, Spouse, Daughter, Other (RN) My Orders My Orders Orders - YAKOV BRUNSON Procedure Category Date Status Time * Gi Dvh [facility] CONS 10/17/24 Transmitted 18:08 Lorazepam 2mg/Ml Inj PHA 10/17/24 In Process (Ativan Inj) 18:15 Regular Diet DIET 10/18/24 Transmitted Breakfast Communication Order ORDERS 10/18/24 Transmitted 06:51 * Supervisor Electronics Testing CONS 10/18/24 Transmitted Consult Stool Occult Blood LAB 10/18/24 Logged 12:15 Pelvic US 10/18/24 Resulted 14:01 CC Plasma Assessment Blood Product Administration S: [id number] YAKOV BRUNSON Oct 18, 2024 16:19
[2024-10-18] MEDS ORDERED: KETOROLAC TROMETH 30 MG/ML 1ML VIAL IV ONE (17:00)
[2024-10-18] MEDS ORDERED: KETOROLAC TROMETH 30 MG/ML 1ML VIAL IV PRN (17:00)
[2024-10-18] MEDS ORDERED: MORPHINE SULFATE INJ 2 MG/ml SYRG IV PRN (17:15)
[2024-10-18] MEDS: MORPHINE SULFATE INJ 2 MG/ml SYRG IV ONE (17:33)
--- NOTE | 2024-10-18 21:42 | DVHPN2 ---
Progress Note - Dictate Date Seen: Oct 18, 2024 Medical Necessity Reason Pt with a Central, PICC or Fol: No Subjective She lives AMA Ms. Shirley Orellana is a 49 years old right-handed female with a history of hypertension, she was brought to the [facility] on 10/17[facility]2024 with a chief company of seizure activity. At that time, she is alert, oriented x4, but he is a poor historian, she claims she has no recollection about convulsion. According to her , when she was sleep, he witnessed the event on her where she was shaking all over body for about 30 seconds, meanwhile her eyes were looking straight, completely nonresponsive to her surroundings, there was no oral trauma or incontinence. The patient was still postictal when the EMS arrived her home She has no history of traumatic brain injury, intracranial infection or family history of seizure disorder In the hospital, the patient was found to have severe anemia [phone], no answer Reyna UDS, 10/17/2024: Negative Plasma alcohol, 10/17/2024: <3 Urinalysis, 10/17/2024: WBC: 2, urine leukocyte esterase: Negative, blood: 3+ WBC/HB/PLT/MCV, 10/17/2024: 12.4/6.2/895/81.7 PTT/INR/ABG, 10/17/2024: 9.8/0.92/20.6 CMP, 10/17/2024: Unremarkable Iron/TIBC/Sat, 10/18/2019 5:13 a.m./396/3.3 Ferritin, 10/17/24: Vitamin B12, 10/17/2024: TSH, 10/17/2024: 3.02 CT head, 10/17/2024: No acute intracranial abnormality MRI head, 10/18/2024: Unremarkable MRI findings of the brain. General: the patient is well developed and nourished. No acute distress. MENTAL STATUS: Awake and alert. Oriented to person, place, time and general circumstances. Poor historian SPEECH, LANGUAGE, HIGHER CORTICAL FUNCTION: no aphasia or dysathria. CRANIAL NERVES: Pupils are equal, round and reactive. EOMs full and conjugate. Facial sensation intact in all three divisions bilaterally. Mandibular strength intact. Facial muscles symmetrical and strength intact. Tongue midline. No fasciculations or atrophy. SENSATION: Sensation to touch and pinprick is normal. MOTOR: Normal tone in the upper and lower extremity. Normal muscle bulk. No fasciculations. No abnormal movements or posturing. Muscle strength of the major groups in the extremities is 5/5. REFLEXES: Deep tendon reflexes are symmetrical. No pathological reflexes. CEREBELLAR/COORDINATION: Finger to nose and heel to barron are normal bilaterally. GAIT/STATION: deferred. Witnessed generalized convulsion New onset generalized tonic-clonic seizure ? Convulsive syncope, less likely GI bleeding Severe anemia Monitoring Supportive treatment Telemetry EEG Ativan for seizure breakthrough Preventive seizure treatment is not indicated at this moment GI specialist on case More recommendation per clinical course This medical document was created using an electronic medical record system with [employer] dictation system. Although this document has been carefully reviewed, there may still be some phonetic and typographical errors. These areas are purely typographical due to imperfections of the software programs, and do not reflect any compromise in the patient's medical care. vital signs Vital Sign Date Time Temp Pulse Resp B/P (MAP) Pulse Ox O2 Delivery O2 Flow Rate FiO2 10/18/24 21:00 98.4 80 20 149/81 (103) 100 98.4 10/18/24 08:00 Room Air* 0 21 Total Intake and Output 10/17/24 10/17/24 10/18/24 15:00 23:00 07:00 Intake Total 1100 ml 1268.5 ml 400 ml Output Total 0 ml Balance 1100 ml 1268.5 ml 400 ml medications Current Medications Medications Dose Ordered Sig/Inocencia Route Start Time Stop Time Status Last Admin Dose Admin Acetaminophen 650 mg Q6HR PO 10/17/24 18:00 10/18/24 12:42 650 MG Ondansetron HCl 4 mg Q4HP PRN IV 10/17/24 12:45 Acetaminophen/ Hydrocodone Bitart 1 tab Q6HP PRN PO 10/17/24 12:45 10/18/24 09:53 1 TAB Lorazepam 1 mg Q5MINP PRN IV 10/17/24 18:15 Lorazepam 1 mg ONCE PRN IV 10/17/24 23:15 Morphine Sulfate 1 mg Q4HP PRN IV 10/18/24 17:15 laboratory and microbiology Laboratory Tests 10/18/24 06:00 Test 10/18/24 06:00 Range/Units Serum Glucose 80 74-106 mg/dL Assessment/Plan Witnessed generalized convulsion New onset generalized tonic-clonic seizure ? Convulsive syncope, less likely GI bleeding Severe anemia Plan discussed with: Other CC Plasma Assessment Blood Product Administration S: [id number] KO SUGGS MD Oct 18, 2024 21:42
--- NOTE | 2024-10-19 19:06 | DVHDSRES ---
Discharge Summary Date of Admission Resident Creating Document: YAKOV BRUNSON Oct 17, 2024 at 12:43 Date of Discharge: Oct 18, 2024 Labs/Diagnostic Data: Laboratory Results Test 10/18/24 10:45 10/18/24 06:00 10/17/24 01:50 10/17/24 00:50 Stool Occult Blood Positive (Negative) Stool Occult Blood Sample #3 (Negative) White Blood Count 8.6 10^3/uL (4.4-10.8) Red Blood Count 2.77 10^6/uL (4.0-5.20) Hemoglobin 7.3 g/dL (12.2-16.2) Hematocrit 22.2 % (36.0-46.0) Mean Corpuscular Volume 80.0 fL (80.0-100.0) Mean Corpuscular Hemoglobin 26.5 pg (28.0-32.0) Mean Corpuscular Hemoglobin Concent 33.1 g/dL (32.0-36.0) Red Cell Distribution Width 17.1 % (11.8-14.3) Platelet Count 786 10^3/uL (140-450) Mean Platelet Volume 7.2 fL (6.9-10.8) Neutrophils (%) (Auto) 70.3 % (37.0-80.0) Lymphocytes (%) (Auto) 21.5 % (10.0-50.0) Monocytes (%) (Auto) 5.8 % (0.0-12.0) Eosinophils (%) (Auto) 1.7 % (0.0-7.0) Basophils (%) (Auto) 0.7 % (0.0-2.0) Neutrophils # (Auto) 6.1 10 ^3/uL (1.6-8.6) Lymphocytes # (Auto) 1.9 10 ^3/uL (0.4-5.4) Monocytes # (Auto) 0.5 10 ^3/uL (0-1.3) Eosinophils # (Auto) 0.1 10 ^3/uL (0-0.8) Basophils # (Auto) 0.1 10 ^3/uL (0-0.2) Nucleated Red Blood Cells 0.2 % Sodium Level 141 mmol/L (136-145) Potassium Level 3.7 mmol/L (3.5-5.1) Chloride Level 108 mmol/L (98-107) Carbon Dioxide Level 24 mmol/L (20-31) Anion Gap 9 (5-15) Blood Urea Nitrogen 7 mg/dL (9-23) Creatinine 0.69 mg/dL (0.550-1.02) Glomerular Filtration Rate Calc 105 mL/min (>90) BUN/Creatinine Ratio 10.1 (10.0-20.0) Serum Glucose 80 mg/dL (74-106) Calcium Level 8.8 mg/dL (8.7-10.4) Total Bilirubin 0.2 mg/dL (0.2-1.0) Aspartate Amino Transferase (AST) 16 U/L (13-40) Alanine Aminotransferase (ALT) 10 U/L (7-40) Alkaline Phosphatase 80 U/L (46-116) Total Protein 6.8 g/dL (5.7-8.2) Albumin 3.9 g/dL (3.2-4.8) Urine Color Colorless (Yellow) Urine Clarity Clear (Clear) Urine pH 8.0 (5.0-9.0) Urine Specific [place] 1.011 (1.001-1.035) Urine Protein Negative (Negative) Urine Ketones Negative (Negative) Urine Blood 3+ /uL (Negative) Urine Nitrite Negative (Negative) Urine Bilirubin Negative (Negative) Urine Urobilinogen Normal mg/dL (Negative) Urine Leukocyte Esterase Negative /uL (Negative) Urine RBC <1 /hpf (0 - 4) Urine Microscopic WBC < 2 /HPF (0-5) Urine Squamous Epithelial Cells Few /hpf (<5) Urine Bacteria None seen /hpf (None Seen) Urine Glucose Normal mg/dL (Normal) Urine Opiates Screen Neg (NEGATIVE) Urine Fentanyl Screen Neg (NEGATIVE) Urine Barbiturates Screen Neg (NEGATIVE) Urine Phencyclidine Screen Neg (NEGATIVE) Urine Amphetamines Screen Neg (NEGATIVE) Urine Benzodiazepines Screen Neg (NEGATIVE) Urine Cocaine Screen Neg (NEGATIVE) Urine Cannabinoids Screen Neg (NEGATIVE) Prothrombin Time 9.8 sec (9.3-11.8) Prothrombin Time INR 0.92 (0.9-1.15) Activated Partial Thromboplast Time 20.6 SEC (24.5-34.5) Phosphorus Level 2.6 mg/dL (2.4-5.1) Magnesium Level 1.9 mg/dL (1.6-2.6) Iron Level 13 ug/dL (50-170) Total Iron Binding Capacity 396 ug/dL (250-425) Percent Iron Saturation 3.3 % (15-50) Ferritin 1.8 ng/mL (10-291) Creatine Kinase 27 U/L (34-145) Vitamin B12 Level 572 pg/mL (211-911) Thyroid Stimulating Hormone (TSH) 3.02 uIU/mL (0.55-4.78) Plasma/Serum Blood Alcohol < 3.0 mg/dL (<10) Other Laboratory Tests 10/18/24 06:00 Brief Hx & Hospital Course: HISTORY OF PRESENT ILLNESS: This is a 49-year-old female with past medical history of hypertension, gestational diabetes mellitus severe anemia (status post transfusion) came to the hospital due to seizure. Per patient's has been, last night at 11:00 p.m. while she wanted to sleep, she suddenly developed jerky movement of limbs, subsequently lost consciousness which last for few minutes. Upon waking up patient was confused for about 15-20 minutes. She also reports of tongue biting. But denies of urine/stool incontinence. One month back, the patient was admitted at [facility] due to severe anemia and abdominal pain, underwent EGD which was found a mass in stomach. She also reports of recently decreased appetite and significant weight loss. She denies fever, cough, chest pain, shortness of breaths or any recent sick contact. Patient does not have any previous history of seizure. PMHx: hypertension, gestational diabetes mellitus severe anemia (status post transfusion) PSHx: Status post EGD 1 month back Family history: No cigarette Social history: Current smoker with 10 pack year history Home medication: Carafate and tramadol for pain Allergic history: No known allergy HOSPITAL COURSE: Patient was admitted on the line of seizure. Head CT scan was performed, showed no significant intracranial abnormalities. Neurology was consulted, recommended MRI, showed no significant intracranial abnormalities. The patient was started on IV fluid, Ativan p.r.n.. Due to severe anemia, blood transfusion was performed. The patient had history of upper GI endoscopy, per patient a stomach mass was found upon study. Medical record from [facility] was requested. GI was consulted, recommended medical management and possible endoscopy. On , the patient states they want to leave the hospital Against Medical Advice (AMA). Patient encouraged to stay for further treatment/stabilization. Patient advised of the risks and benefits of leaving AMA. Patient verbalized understanding. Patient encouraged to return to the ER if symptoms do not improve or worsen. FINAL DIAGNOSIS: Acute metabolic encephalopathy, likely due to seizure Status post seizure Severe anemia, likely due to GI cancer , status post blood transfusion Possible stomach cancer Hypotension History of gestational diabetes mellitus Hypokalemia New onset generalized tonic-clonic seizure ? Convulsive syncope, less likely Severe anemia Condition at Discharge: Undetermined Final Diagnosis/Problems List . Discharge Disposition: AMA Discharge Statement: "Patient was advised to return to the ER or call 911 if any headaches, dizziness, shortness of breath, chest pain, abdominal pain, bleeding, fevers, or worsening of medical condition. Patient was counseled about treatment plan, medications, possible side effects, patientverbalized understanding. All questions were answered to the best of my ability. This discharge took greater then 30 minutes in planning, reviewing documentation, counseling the patient, and discussing with other team members." ASSESSMENT ASSESSMENT Assessment YAKOV BRUNSON [facility] Oct 19, 2024 19:06
--- NOTE | 2024-10-19 21:45 | DVHEEG2 ---
Neurology EEG Procedural Note Procedural Note EXAM DATE: 10/18/2024 REFERRING DOCTOR: Dr. Suggs TECHNIQUE: Eighteen channels of EEG, 2 channels of EOG, and 1 channel of EKG were recorded using the [employer] 10/20 system. CLINICAL DATA: The patient was referred for an EEG evaluation for the evidence of seizure disorder. MEDICATIONS: See the chart BACKGROUND ACTIVITY: While the patient was awake, the background activity consisted of well regulated 9 Hz rhythmic waveforms, symmetrically distributed over both posterior quadrants and was reactive to eye opening. ACTIVATION: Hyperventilation: Not done Photic Stimulation: Not done Sleep: Stage I & II IMPRESSION: This is a normal EEG. No focal, lateralized, or epileptiform features are noted. If clinically indicated to rule out a seizure disorder, recommend repeat EEG with sleep deprivation. The EKG channel showed a regular heart rate of 72/minute [place] [address] KO SUGGS MD Oct 19, 2024 21:45
== END 2024-10-18 20:49 | disposition left against medical advice (07) | DRG 101 ==
LOC: ER 00:45 → EDBD 00:45 → OVERFLOW 12:43 → WEST WING 17:54 → TELE-WESTW 10-18 00:40
PROVIDERS: ADMIT Student in an Organized Health Care Education/Training Program; ATTEND Emergency Medicine
PROC: 30233N1 Transfusion of Nonautologous Red Blood Cells into Peripheral Vein, Percutaneous Approach (ICD-10-PCS; principal; 2024-10-17)
DX: G40.409 Other generalized epilepsy and epileptic syndromes, not intractable, without status epilepticus (principal); K92.2 Gastrointestinal hemorrhage, unspecified; C16.9 Malignant neoplasm of stomach, unspecified; E87.6 Hypokalemia; I10 Essential (primary) hypertension; F17.200 Nicotine dependence, unspecified, uncomplicated; D50.9 Iron deficiency anemia, unspecified; Z53.29 Procedure and treatment not carried out because of patient's decision for other reasons; Z86.32 Personal history of gestational diabetes; Z82.49 Family history of ischemic heart disease and other diseases of the circulatory system
CPT/HCPCS: 36415; 36430; 70450; 70551; 76856; 80053; 80307; 80320; 81001; 82270; 82550; 82607; 82728; 83540; 83550; 83735; 84100; 84443; 85025; 85610; 85730; 86850; 86900; 86901; 86920; 87081; 93005; 95819; 96365; G0378; J1756; J2003